=== PATIENT | male | born 1980 ===

== ENCOUNTER 2024-12-19 05:03 | Day surgery (SDC) | payer OTHER ==
[2024-12-19] MEDS ORDERED: DIPHENHYDRAMINE HCL 50 MG/ML VIAL 1ML IV ONE (08:00)
[2024-12-19] MEDS ORDERED: MIDAZOLAM HCL/PF 5 MG/ML VIAL IV ONE (08:00)
[2024-12-19] MEDS ORDERED: MEPERIDINE HCL/PF 50 MG/ML VIAL IV ONE (08:00)
== END 2024-12-19 10:30 | disposition home or self-care (01) ==
LOC: AMB-ENDOS 05:03
PROVIDERS: ATTEND Surgery
DX: K29.50 Unspecified chronic gastritis without bleeding (principal); B96.81 Helicobacter pylori [H. pylori] as the cause of diseases classified elsewhere; R10.13 Epigastric pain; E66.09 Other obesity due to excess calories; K44.9 Diaphragmatic hernia without obstruction or gangrene